=== PATIENT | female | born 1960 | race Caucasian/White ===

== ENCOUNTER 2022-01-27 12:06 | Emergency (ER) | payer MEDICAID ==
[~2022-01-27] VITALS: Ht 162.6 cm; Wt 82.0 kg
[2022-01-27 12:10] VITALS: BP 192/97
[2022-01-27] MEDS ORDERED: LIDOCAINE HCL/PF 1% 10 MG/ML 5ML VIAL INFIL ONE (13:00)
[2022-01-27] MEDS ORDERED: TETANUS, DIPHTHERIA, PERTUSSIS VAC/PF 0.5ML (>10YR OLD) IM ONE (13:00)
[2022-01-27] MEDS ORDERED: BACITRACIN ZINC OINT UDPKT TOP ONE (13:00)
== END 2022-01-27 13:45 | disposition home or self-care (01) ==
LOC: ER 12:15
DX: S61.012A Laceration without foreign body of left thumb without damage to nail, initial encounter (principal); W26.0XXA Contact with knife, initial encounter; Y93.89 Activity, other specified; Y92.9 Unspecified place or not applicable; E11.9 Type 2 diabetes mellitus without complications; I10 Essential (primary) hypertension
CPT/HCPCS: 12001; 90471; 90715; 99283; J3490

== ENCOUNTER 2022-02-07 14:57 | Emergency (ER) | payer MEDICAID ==
[~2022-02-07] VITALS: Ht 162.6 cm; Wt 75.0 kg
[2022-02-07 17:17] VITALS: BP 164/87
== END 2022-02-07 17:20 | disposition home or self-care (01) ==
LOC: ER 14:57
DX: Z48.00 Encounter for change or removal of nonsurgical wound dressing (principal); S61.012D Laceration without foreign body of left thumb without damage to nail, subsequent encounter; X58.XXXD Exposure to other specified factors, subsequent encounter; E11.9 Type 2 diabetes mellitus without complications; I10 Essential (primary) hypertension
CPT/HCPCS: 99281

== ENCOUNTER 2024-02-27 22:38 | Emergency (ER) | payer SELFPAY ==
[~2024-02-27] VITALS: Ht 162.6 cm; Wt 99.7 kg
[2024-02-27 22:51] VITALS: TEMP 98.6; O2SAT 98
[2024-02-28] MEDS ORDERED: IBUP-2030 MT (01:45)
[2024-02-28] MEDS ORDERED: GABA-529 MT (01:45)
[2024-02-28] MEDS ORDERED: HYDR-4001 MT (01:45)
[2024-02-28 02:00] VITALS: BP 199/90; PULSE 92; RESP 18
[2024-02-28] MEDS: OXYCODONE HCL/ACETAMINOPHEN 5/325MG TABLET PO ONE (02:00)
== END 2024-02-28 03:12 | disposition home or self-care (01) ==
LOC: ER 22:38
DX: S22.41XA Multiple fractures of ribs, right side, initial encounter for closed fracture (principal); S99.922A Unspecified injury of left foot, initial encounter; E11.9 Type 2 diabetes mellitus without complications; I10 Essential (primary) hypertension; W18.39XA Other fall on same level, initial encounter; Y93.89 Activity, other specified; Y92.89 Other specified places as the place of occurrence of the external cause; Y99.8 Other external cause status
CPT/HCPCS: 71100; 71250; 73630; 99284